=== PATIENT | female | born 1940 | race Caucasian/White ===

== ENCOUNTER 2017-09-05 14:57 | Emergency (ER) | payer MEDICARE ==
[~2017-09-05] VITALS: Ht 157.5 cm; Wt 94.0 kg
[~2017-09-05 14:57] MED LIST: MEDR2.5 PO; PREM0.622 PO; TYLE3 PO; ZITHTAB6 PO
[2017-09-05 14:59] VITALS: BP 186/94; PULSE 79; RESP 16; TEMP 97.3; O2SAT 99
[2017-09-05] MEDS ORDERED: ESTR.625 PO (15:32)
[2017-09-05] MEDS ORDERED: MEDR2.5 PO (15:32)
[2017-09-05] MEDS ORDERED: PRED2.5T PO (15:32)
--- NOTE | 2017-09-05 16:06 | PD ---
HPI Chief Complaint: Musculoskeletal Complaint Time Seen by Provider: 15:29 Travel History International Travel<30 days: No Contact w/Intl Traveler<30days: No Traveled to known affect area: No History of Present Illness HPI 77-year-old female that presents to the ED for evaluation of left foot pain with no injury. Per patient she's been having this pain for about almost a week now. Per patient is not getting better. Per patient is minimal improvement which is was concerning for her. She denies any injury or trauma. No overuse. She states that the pain is mainly to the dorsal aspect of the left foot around the medial aspect of the foot. Pain gets worse with weightbearing as well as with lifting the leg. Gets better otherwise. Per patient the pain gets to be 8 our of 10 with weightbearing. Currently 6 out of 10. Has not taken anything for this. Per patient she does take prednisone chronically for polymyalgia rheumatica. States that she is currently being tapered off some steroids. Has an allergy to sulfa. Allergy to cephalexin. PFSH Past Medical History High Cholesterol: Yes Diminished Hearing: No Medical other: Yes (PMR) Immunizations Current: Yes Tetanus Vaccination: < 5 Years Influenza Vaccination: Yes ?: Not Menopausal: Yes Past Surgical History Tonsillectomy: Yes Other Surgery: Yes (BLEPHAROPLASTY) Social History Alcohol Use: No Tobacco Use: No Substance Use: No Allergies-Medications (Allergen,Severity, Reaction): Coded Allergies: Sulfa (Sulfonamide Antibiotics) (Unverified Allergy, Severe, Edema, ) cephalexin (Unverified Adverse Reaction, Severe, PT DENIES, 09/05/17) Reported Meds & Prescriptions Reported Meds & Active Scripts Active Reported Provera (Medroxyprogesterone Acetate) 2.5 Mg Tab 2.5 Mg PO DAILY Start day 16 Premarin (Estrogens Conjugated) 0.625 Mg Tab 0.625 Mg PO DAILY Prednisone 2.5 Mg Tab 2 Mg PO DAILY Review of Systems Except as stated in HPI: all other systems reviewed are Neg Physical Exam Narrative GENERAL: SKIN: Warm and dry. HEAD: Atraumatic. Normocephalic. EYES: Pupils equal and round. No scleral icterus. No injection or drainage. ENT: No nasal bleeding or discharge. Mucous membranes pink and moist. NECK: Trachea midline. No JVD. CARDIOVASCULAR: Regular rate and rhythm. RESPIRATORY: No accessory muscle use. Clear to auscultation. Breath sounds equal bilaterally. GASTROINTESTINAL: Abdomen soft, non-tender, nondistended. Hepatic and splenic margins not palpable. MUSCULOSKELETAL: Extremities without clubbing, cyanosis, or edema. No obvious deformities. Patient has reproducible pain on the dorsal aspect of the left foot around the first metatarsal area. Pain improves with weightbearing as well as with touch. Slight soft tissue swelling noted but no erythema. Not warm to touch. 2+ pulses bilaterally. Neurovascular intact. Full range of motion of all other extremities with no pain. NEUROLOGICAL: Awake and alert. No obvious cranial nerve deficits. Motor grossly within normal limits. Five out of 5 muscle strength in the arms and legs. Normal speech. PSYCHIATRIC: Appropriate mood and affect; insight and judgment normal. Data Data Last Documented VS Vital Signs Date Time Temp Pulse Resp B/P (MAP) Pulse Ox O2 Delivery O2 Flow Rate FiO2 09/05/17 14:59 97.3 79 16 186/94 (124) 99 Orders Orders Foot, Complete ([id number]) (09/05/17 ) Ed Discharge Order (09/05/17 16:47) [facility] Medical Decision Making Medical Screen Exam Complete: Yes Emergency Medical Condition: Yes Medical Record Reviewed: Yes Interpretation(s) Last Impressions Foot X-Ray 09/05/17 0000 Signed Impressions: Service Date/Time: Tuesday, September 05, 2017 16:15 - CONCLUSION: Degenerative changes are noted. Carlito Galindo MD Differential Diagnosis Fracture versus arthritis versus sprain versus strain versus tendinitis Narrative Course 77-year-old female that presents to the ED for evaluation of left foot pain. Patient was properly examined and was found to have signs and symptoms of unclear etiology. Imaging was ordered. Imaging showed no sign of acute bony injury but DJD. Patient was reassured. Unclear the etiology but because of the patient's symptoms especially getting worse when she lifts her foot I do believe this is actually tendinitis. At this time I discussed treatment plan with her. She takes steroids and upper for not to change her steroid dose at this time as she is working with her provider to get off the steroids. I do recommend that she has an anti-inflammatory to her medications to see this will help with this. She understands this. She states that she has a cream of Voltaren and recommended maybe trying this seemed to help is of the pain. Warm compresses were endorsed pierced to want her to follow with a buggy runner. She understands and agrees with this. See ED worsening symptoms. Follow with PCP. Diagnosis Primary Impression: Foot tendinitis Patient Instructions: General Instructions Additional Instructions: Take naproxen and use voltaren cream as we discussed. Follow-up with buggy runner See ED for any worsening symptoms. Apply ice or heat as needed for pain Med/Other Pt SpecificInfo: Prescription(s) given Disposition: 01 DISCHARGE HOME Condition: Chandler Calvillo Sep 05, 2017 16:06
--- NOTE | 2017-09-05 16:44 | RADRPT ---
EXAM DATE/TIME: 09/05/2017 16:15 [facility] COMPARISON: No previous studies available for comparison. INDICATIONS : Left dorsal foot pain, no known trauma. MEDICAL HISTORY : None. SURGICAL HISTORY : None. ENCOUNTER: Initial ACUITY: 3 days PAIN SCORE: 4/10 LOCATION: Left foot. FINDINGS: No fracture or dislocation. Plantar and posterior calcaneal spur. Dorsal spurring at the tarsometatar pennie articulations. CONCLUSION: Degenerative changes are noted. Carlito Galindo MD on September 05, 2017 at 16:41 Board Certified Radiologist. This report was verified electronically.
== END 2017-09-05 16:58 | disposition home or self-care (01) ==
LOC: PHED 14:57
DX: M77.52 Other enthesopathy of left foot and ankle (principal); M35.3 Polymyalgia rheumatica; E78.00 Pure hypercholesterolemia, unspecified
CPT/HCPCS: 73630; 99283